=== PATIENT | female | born 1965 | race African-American/Black ===

== ENCOUNTER 2023-09-03 05:40 | Emergency (ER) | payer MEDICAID ==
[~2023-09-03] VITALS: Ht 167.6 cm; Wt 85.6 kg
[2023-09-03 05:59] VITALS: BP 111/65; O2SAT 100
[2023-09-03] MEDS ORDERED: MELO-105 MT (06:46)
[2023-09-03 06:58] VITALS: PULSE 78; RESP 16; TEMP 98.6
== END 2023-09-03 07:03 | disposition home or self-care (01) ==
LOC: ER 05:40
DX: M25.532 Pain in left wrist (principal); I10 Essential (primary) hypertension
CPT/HCPCS: 73100; 99283